=== PATIENT | male | born 1985 | race Caucasian/White ===

== ENCOUNTER 2017-04-27 09:00 | Inpatient (IN) | payer OTHER, MEDICAID ==
[~2017-04-27] VITALS: Ht 180.3 cm; Wt 105.0 kg
[2017-04-27] MEDS ORDERED: IOHEXOL 350 MG/ML 10 ML VIAL (for RAD DIAG) IVCONTRAST ONE (09:01)
[2017-04-27 09:11] VITALS: BP 141/87; PULSE 94; RESP 20; TEMP 98.2; O2SAT 97
[2017-04-27] MEDS ORDERED: SODIUM CHLORIDE 0.9% FLUSH 10 ML FLUSH IVF PRN (09:15)
[2017-04-27 09:23] VITALS: O2SAT 97
[2017-04-27 09:42] LABS: AUTOMATED NEUTROPHIL # 4.7 TH/MM3 (1.8-7.7); BASOPHIL % 0.4 % (0.0-2.0); EOSINOPHIL % 0.1 % (0.0-4.0); HEMATOCRIT 46.7 % (39.0-51.0); HEMO FLAGS DIFF FINAL; LYMPH % 21.6 % (9.0-44.0); LYMPHOCYTE # 1.5 TH/MM3 (1.0-4.8); MEAN CELL VOLUME 96.8 FL (80.0-100.0); MEAN CORPUSCULAR HEMOGLOBIN 33.9 PG (27.0-34.0); MONO % 8.9 % (0.0-8.0); PLATELET COUNT 199 TH/MM3 (150-450); RED BLOOD COUNT 4.82 MIL/MM3 (4.50-5.90); RED CELL DISTRIBUTION WIDTH 13.6 % (11.6-17.2); WHITE BLOOD COUNT 6.8 TH/MM3 (4.0-11.0)
[2017-04-27 09:54] LABS: APTT (PATIENT) 23.9 SEC (24.3-30.1); PROTHROMBIN TIME - PATIENT 10.9 SEC (9.8-11.6)
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
[2017-04-27 10:05] LABS: BICARBONATE 27.7 MEQ/L (21.0-32.0); POTASSIUM 3.2 MEQ/L (3.5-5.1)
[2017-04-27] MEDS ORDERED: ONDANSETRON HCL 4 MG/2 ML VIAL IV PUSH ONE (10:15)
[2017-04-27] MEDS ORDERED: MORPHINE SULFATE 4 MG/ML INJ IV PUSH ONE (10:15)
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
--- NOTE | 2017-04-27 13:02 | EKG ---
Date Performed: 04/27/2017 Time Performed: 09:20:13 PTAGE: 32 years EKG: Sinus rhythm NORMAL ECG NO PREVIOUS TRACING DOCTOR: Jamie Figueroa Interpretating Date/Time 04/27/2017 13:01:06
[2017-04-27 13:14] LABS: CREATINE KINASE 305 U/L (39-308)
[2017-04-27 13:27] LABS: CKMB 2.8 NG/ML (0.5-3.6)
[2017-04-27] MEDS ORDERED: ACETAMINOPHEN 325 MG TAB PO PRN (14:00)
[2017-04-27] MEDS ORDERED: SODIUM CHLORIDE 0.9% FLUSH 10 ML FLUSH IV FLUSH PRN (14:00)
[2017-04-27] MEDS ORDERED: ONDANSETRON HCL 4 MG/2 ML VIAL IV PUSH PRN (14:00)
[2017-04-27] MEDS ORDERED: MAGNESIUM HYDROXIDE SUSP 30 ML CUP PO PRN (14:00)
[2017-04-27] MEDS ORDERED: ENALAPRILAT 1.25 MG/ML VIAL IV PUSH PRN (14:00)
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
[2017-04-27] MEDS: ACETAMINOPHEN/HYDROcodone 325 MG/5 MG TAB PO PRN ×2 (17:05→20:57)
[2017-04-27] MEDS: PANTOPRAZOLE SODIUM 40 MG VIAL IVP SCH (17:05)
[2017-04-27] MEDS: MULTIVITAMIN INJ 10 ML, THIAMINE INJ 100 MG, FOLIC ACID INJ 1 MG in SODIUM CHLORID 0.9%... IV SCH (17:06)
[2017-04-27 20:00] VITALS: BP 151/83; PULSE 79; RESP 20; TEMP 98.9; O2SAT 97
[2017-04-27] MEDS: DOCUSATE SODIUM 100 MG CAP PO SCH (20:05)
[2017-04-28] VITALS: BP 122/78; PULSE 60; RESP 17; TEMP 96.7; O2SAT 97
[2017-04-28] MEDS: ACETAMINOPHEN/HYDROcodone 325 MG/5 MG TAB PO PRN ×4 (03:48→22:34)
[2017-04-28 06:54] LABS: AUTOMATED NEUTROPHIL # 2.8 TH/MM3 (1.8-7.7); BASOPHIL % 0.5 % (0.0-2.0); EOSINOPHIL # 0.1 TH/MM3 (0-0.4); EOSINOPHIL % 1.4 % (0.0-4.0); HEMATOCRIT 43.9 % (39.0-51.0); HEMO FLAGS DIFF FINAL; LYMPH % 32.8 % (9.0-44.0); LYMPHOCYTE # 1.8 TH/MM3 (1.0-4.8); MEAN CELL VOLUME 97.4 FL (80.0-100.0); MEAN CORPUSCULAR HEMOGLOBIN 33.9 PG (27.0-34.0); MEAN CORPUSCULAR HGB CONC 34.8 % (32.0-36.0); MONO % 13.1 % (0.0-8.0); NEUT % 52.2 % (16.0-70.0); PLATELET COUNT 145 TH/MM3 (150-450); RED BLOOD COUNT 4.51 MIL/MM3 (4.50-5.90); RED CELL DISTRIBUTION WIDTH 13.5 % (11.6-17.2); WHITE BLOOD COUNT 5.4 TH/MM3 (4.0-11.0)
[2017-04-28 07:15] LABS: ANION GAP 7 MEQ/L (5-15); AST (GOT) 60 U/L (15-37); BLOOD UREA NITROGEN 6 MG/DL (7-18); CHLORIDE 104 MEQ/L (98-107); GLOMERULAR FILTRATION RATE 97 ML/MIN (>89); POTASSIUM 3.4 MEQ/L (3.5-5.1); SODIUM (NA) 139 MEQ/L (136-145)
[2017-04-28 07:16] LABS: ALT (GPT) 47 U/L (12-78)
[2017-04-28 07:18] LABS: ALKALINE PHOSPHATASE 100 U/L (45-117); TOTAL BILIRUBIN ADULT 2.1 MG/DL (0.2-1.0)
[2017-04-28 08:00] VITALS: BP 127/79; PULSE 50; RESP 17; TEMP 96.6; O2SAT 95
[2017-04-28] MEDS ORDERED: POTASSIUM CHLORIDE 20 MEQ CONTROLLED RELEASE TAB PO ONE (08:15)
[2017-04-28] MEDS: DOCUSATE SODIUM 100 MG CAP PO SCH ×2 (09:19→20:58)
[2017-04-28 12:00] VITALS: BP 116/59; PULSE 60; RESP 16; TEMP 97.1; O2SAT 96
--- NOTE | 2017-04-28 12:13 | HHI.PR ---
Subjective Subjective Notes PTD: 1 Patient lying in bed. No distress noted. Sitter at bedside. Patient states, "if I move any - my tailbone. I can't really move much - it hurts." Objective Vitals/I&O Vital Signs Date Time Temp Pulse Resp B/P (MAP) Pulse Ox O2 Delivery O2 Flow Rate FiO2 04/28/17 08:00 96.6 50 17 127/79 (95) 95 04/28/17 05:50 Room Air Labs Laboratory Tests Test 04/28/17 06:10 White Blood Count 5.4 Red Blood Count 4.51 Hemoglobin 15.3 Hematocrit 43.9 Mean Corpuscular Volume 97.4 Mean Corpuscular Hemoglobin 33.9 Mean Corpuscular Hemoglobin Concent 34.8 Red Cell Distribution Width 13.5 Platelet Count 145 Mean Platelet Volume 7.9 Neutrophils (%) (Auto) 52.2 Lymphocytes (%) (Auto) 32.8 Monocytes (%) (Auto) 13.1 Eosinophils (%) (Auto) 1.4 Basophils (%) (Auto) 0.5 Neutrophils # (Auto) 2.8 Lymphocytes # (Auto) 1.8 Monocytes # (Auto) 0.7 Eosinophils # (Auto) 0.1 Basophils # (Auto) 0.0 CBC Comment DIFF FINAL Differential Comment Blood Urea Nitrogen 6 Creatinine 0.92 Random Glucose 81 Total Protein 6.5 Albumin 3.3 Calcium Level 8.7 Alkaline Phosphatase 100 Aspartate Amino Transf (AST/SGOT) 60 Alanine Aminotransferase (ALT/SGPT) 47 Total Bilirubin 2.1 Sodium Level 139 Potassium Level 3.4 Chloride Level 104 Carbon Dioxide Level 28.0 Anion Gap 7 Estimat Glomerular Filtration Rate 97 Radiology Last Impressions Pelvis X-Ray 04/27/17910 Signed Impressions: Service Date/Time: Thursday, April 27, 2017 09:50 - CONCLUSION: Normal examination for a patient of this age. Hilton Del Cid MD FACR Lumbar Spine CT 04/27/17910 Signed Impressions: Service Date/Time: Thursday, April 27, 2017 10:39 - CONCLUSION: Negative for fracture. Hilton Del Cid MD FACR Head CT 04/27/17910 Signed Impressions: Service Date/Time: Thursday, April 27, 2017 10:35 - CONCLUSION: Negative for acute process. Hilton Del Cid MD FACR Chest X-Ray 04/27/17910 Signed Impressions: Service Date/Time: Thursday, April 27, 2017 09:56 - CONCLUSION: Prominent cardiac silhouette. Mild interstitial prominence. Aspiration would be a consideration. Hilton Del Cid MD FACR Cervical Spine CT 04/27/17910 Signed Impressions: Service Date/Time: Thursday, April 27, 2017 10:35 - CONCLUSION: Negative for fracture. Hilton Del Cid MD FACR Abdomen/Pelvis CT 04/27/17910 Signed Impressions: Service Date/Time: Thursday, April 27, 2017 10:39 - CONCLUSION: Minimal contusion root of the mesentery. Large distended bladder. Hilton Del Cid MD FACR Sacrum and Coccyx X-Ray 04/27/17 0000 Signed Impressions: Service Date/Time: Thursday, April 27, 2017 09:53 - CONCLUSION: Normal examination for a patient of this age. Hilton Del Cid MD FACR Chest CT 04/27/17 0000 Signed Impressions: Service Date/Time: Thursday, April 27, 2017 10:39 - CONCLUSION: Negative for acute traumatic injury. Hilton Del Cid MD FACR Narrative Exam GENERAL: This is a 32-year-old male. Well built. No distress noted. SKIN: Warm and dry. HEAD: Atraumatic. Normocephalic. EYES: PERRLA ENT: No nasal bleeding or discharge. Mucous membranes pink and moist. NECK: Trachea midline. No JVD. CARDIOVASCULAR: Regular rate and rhythm. RESPIRATORY: No accessory muscle use. Lungs are clear to auscultation. Breath sounds equal bilaterally. No distress or dyspnea. GASTROINTESTINAL: BS + x 4 quads. Abdomen soft, non-tender, nondistended. MUSCULOSKELETAL: Extremities without cyanosis, or edema. + peripheral pulses x 4 extremities. Warm with good capillary refill and sensation. MAEW. NEUROLOGICAL: Awake and alert. Normal speech and pattern. A/P Problem List: (1) Alcohol intoxication ICD Codes: F10.929 - Alcohol use, unspecified with intoxication, unspecified Status: Acute (2) Suicide attempt ICD Codes: T14.91 - Suicide attempt Status: Acute (3) Contusion of mesentery ICD Codes: S36.892A - Contusion of other intra-abdominal organs, initial encounter Status: Acute Assessment and Plan [place]: This is a 32-year-old male who attempted suicide yesterday by jumping off a bridge. + Cocaine. EtOH = 233. INJURIES: Large distended bladder Contusion at root of mesentery Procedures: Consults: Psych. Case management. Consult to psychiatry for further management and care - awaiting their evaluation. Okay for transfer to inpatient psych if psychiatrist recommends. Sitter at bedside - to keep patient safe post suicide attempt. Patricia Act . Diet: Advanced to Regular diet. Tolerating po diet. Encourage good po intake with each meal. Pulmonary: Encourage good pulmonary toileting. IS at bedside and pt encouraged to use. Rationale for use explained to patient, and verbalized understanding. K=3.4. Potassium 20 mEq x 1 dose today. PAIN Management: Ragley 5 mg every 4 hours. Tylenol. Added Robaxin 500 mg every 8 hours. Activity: OOB. PT ordered. GI prophylaxis: Protonix IV Bowel regimen: Colace and MOM. LBM: 0 DVT prophylaxis: Mechanical VTE with SCDs. Chemical management TBD DC Planning: Case management consulted for assistance with final discharge disposition. Emotional support provided to patient and family at bedside and plan of care discussed. Discussed with RN at bedside. Patient is hemodynamically stable and being managed on the med/surg floor. The trauma team will round each day, and evaluate plan of care on a daily basis. Large distended bladder Contusion at root of mesentery Supportive care Monitor closely Abdomen benign Advanced to regular diet Pain management Encourage out of bed PT ordered Suicide attempt Patricia act . Keep patient safe - make room safe Sitter at bedside Consult to psychiatry for full evaluation Plan for inpatient psychiatric treatment Problem Qualifiers (1) Alcohol intoxication: Qualified Codes: F10.920 - Alcohol use, unspecified with intoxication, uncomplicated (2) Contusion of mesentery: Qualified Codes: S36.892A - Contusion of other intra-abdominal organs, initial encounter Monica George Apr 28, 2017 12:13
[2017-04-28] MEDS: METHOCARBAMOL 500 MG TAB PO SCH ×2 (13:35→20:58)
[2017-04-28 16:00] VITALS: BP 136/75; PULSE 53; RESP 16; TEMP 97.6; O2SAT 98
[2017-04-28] MEDS: MULTIVITAMIN INJ 10 ML, THIAMINE INJ 100 MG, FOLIC ACID INJ 1 MG in SODIUM CHLORID 0.9%... IV SCH (16:44)
[2017-04-28] MEDS: PANTOPRAZOLE SODIUM 40 MG VIAL IVP SCH (16:44)
--- NOTE | 2017-04-28 17:04 | PD.PSY.CON ---
Provisional Diagnosis Admission Date Apr 27, 2017 at 13:44 Bishop I. Major depressive disorder, single episode, severe without psychotic features; alcohol use disorder Bishop II. deferred Bishop III. recent contusion of messentary secondary to recent suicide attempt via jumping from bridge Bishop IV. multiple psychosocial losses, recent suicide attempt, financial difficulty Bishop V. 37 History of Present Illness Service Psychiatry Consult Requested By Irene Poole MD Reason for Consult moore act suicide attempt Primary Care Physician No Primary Care Physician HPI Patient is a 32 y/o , domiciled alone with three children whom he has partial custody of, employed, with past psychiatric history of depression, no prior psychiatric hospitalizations, one previous suicide attempt via overdose, no previous self-injurious behavior, substance use history of alcohol and cocaine use with remote history of polysubstance use, who was admitted to the medical floor after suicide attempt via jumping from [place] which psychiatry was consulted for evaluation. Patient was seen lying on hospital bed, calm and cooperative with interview. Patient states feeling "horribe, embarassed" due to recent suicide attempt. He states that for the past couple of weeks he was "losing everything...house, my car, my ex-...". He states that he relapsed from alcohol sobriety on February 01 when he from his but continued to live together whcih he was arrested for domestic battary and currently has upcoming trial for the same. He states that his ex- started seeing other guys, he had spent two weeks in [place] from the arrest and lost his employ in the process which he ended up being homeless for two weeks. He also mentions that he has been having financial difficutly as he was able to acquire a home and a car by working three jobs which the week prior to the SA had slept 2 hours per day. He reports having had suicidal ideations for the past coupe of weeks, which was worsening. He states that day of the SA he woke up to go to work but decided not to go as he had been thinking about jumping from a bridge for the past two weeks and began imagining himself jumping "i started even fantasizing about jumping" and had driven himself to the bridge and drank a beer in his car which he then walked to the bridge to jump. He states that while standing there police arrived and attempted to talk to him which he was able to speak to a friend who is an officer but then decided to hang up and jumped. He states that he was attempting to hit the dock but missed by 10 inches. Currently he states feeling "scared and embarased", states that he loves his children, feeling that he's good at his job, misses his . Past psychiatric history: previous psychiatric diagnosis of depressed, no previous psychiatric admissions, one previous suicide attempt via overdose, denies history of self injurious behavior. Previous mental health service by a psychiatrist 5-6 years ago which he received medication management and therapy for 6 months. Previous medication trials: Wellburtrin (last took 3-4 years ago). Substance use history: Tobacco (+) - 1 PPD, ETOH daily, 1-5 beers with liquor, last drink was yesterday morning (one beer); reports history of polysubstance use years ago; denies previous rehabilitation program for substance use or detox. 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 Legal history: recent charge of domestic battary Review of Systems Except as stated in HPI: all other systems reviewed are Neg Past Family Social History Coded Allergies: No Known Allergies (Unverified , 04/27/17) Active Scripts Hydrocodone-Acetaminophen (Hydrocodone-Acetaminophen) 5-325 mg Tab, 1 TAB PO Q6HR for Pain Management, #21 TAB Prov:Monica George FLIGHT MANAGER 04/29/17 Magnesium Hydroxide (Eq Milk of Magnesia) 400 Mg/5 Ml Melly, 30 ML PO Q6H Y for CONSTIPATION for 7 Days, MG Prov:Monica George FLIGHT MANAGER 04/29/17 Docusate Sodium (Dok) 100 Mg Cap, 100 MG PO BID for Constipation for 7 Days, # 14 CAP Prov:Monica George FLIGHT MANAGER 04/29/17 Current Medications Medications (Trade) Dose Ordered Sig/Jose Route Start Time Stop Time Status Last Admin (NS Flush) 2 ml UNSCH PRN IV FLUSH 04/27/17 14:00 (Cruger 5-325 Mg) 1 tab Q4H PRN PO 04/27/17 14:00 04/28/17 16:43 (Tylenol) 650 mg Q6H PRN PO 04/27/17 14:00 (Vasotec Inj) 1.25 mg Q8H PRN IV PUSH 04/27/17 14:00 (Zofran Inj) 4 mg Q6H PRN IV PUSH 04/27/17 14:00 (Protonix Inj) 40 mg Q24H IVP 04/27/17 16:00 04/28/17 16:44 Multivitamins 10 ml/Thiamine HCl 100 mg/Folic Acid 1 mg/Sodium Chloride 511.2 ml @ 125 mls/hr Q24H IV 04/27/17 16:00 04/29/17 20:06 04/28/17 16:44 (Colace) 100 mg BID PO 04/27/17 21:00 04/28/17 09:19 (Milk Of Magnesia Liq) 30 ml Q6H PRN PO 04/27/17 14:00 (Robaxin) 500 mg Q8HR PO 04/28/17 14:00 04/28/17 13:35 Social History , living alone but has partial custody of three children, 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 Patient's Strengths (min. 2) verbal and communicative Physical Exam patient noted to be in pain upon moving in the bed but not in acute distress when lying his side, no gross motor abnormalities, no tremor no psychomotor agitation or retardation. Vital Signs Vital Signs Date Time Temp Pulse Resp B/P (MAP) Pulse Ox O2 Delivery O2 Flow Rate FiO2 04/28/17 12:00 97.1 60 16 116/59 (78) 96 04/28/17 05:50 Room Air I/O 04/28/17 04/28/17 04/29/17 08:00 16:00 00:00 Intake Total 240 ml Balance 240 ml Lab Results labs reviewed. Test 04/28/17 06:10 White Blood Count 5.4 TH/MM3 Red Blood Count 4.51 MIL/MM3 Hemoglobin 15.3 GM/DL Hematocrit 43.9 % Mean Corpuscular Volume 97.4 FL Mean Corpuscular Hemoglobin 33.9 PG Mean Corpuscular Hemoglobin Concent 34.8 % Red Cell Distribution Width 13.5 % Platelet Count 145 TH/MM3 Mean Platelet Volume 7.9 FL Neutrophils (%) (Auto) 52.2 % Lymphocytes (%) (Auto) 32.8 % Monocytes (%) (Auto) 13.1 % Eosinophils (%) (Auto) 1.4 % Basophils (%) (Auto) 0.5 % Neutrophils # (Auto) 2.8 TH/MM3 Lymphocytes # (Auto) 1.8 TH/MM3 Monocytes # (Auto) 0.7 TH/MM3 Eosinophils # (Auto) 0.1 TH/MM3 Basophils # (Auto) 0.0 TH/MM3 CBC Comment DIFF FINAL Differential Comment Blood Urea Nitrogen 6 MG/DL Creatinine 0.92 MG/DL Random Glucose 81 MG/DL Total Protein 6.5 GM/DL Albumin 3.3 GM/DL Calcium Level 8.7 MG/DL Alkaline Phosphatase 100 U/L Aspartate Amino Transf (AST/SGOT) 60 U/L Alanine Aminotransferase (ALT/SGPT) 47 U/L Total Bilirubin 2.1 MG/DL Sodium Level 139 MEQ/L Potassium Level 3.4 MEQ/L Chloride Level 104 MEQ/L Carbon Dioxide Level 28.0 MEQ/L Anion Gap 7 MEQ/L Estimat Glomerular Filtration Rate 97 ML/MIN Mental Status Examination Appearance appears stated age, in hospital [facility], fair hygiene and grooming, calm and cooperative with interview; fair eye contact Speech: Unremarkable Orientation: x3 Memory: Unremarkable Thought Process: Logical, Organized Thought Content: Unremarkable Language fluent and spontaneous Fund of Knowledge average Hallucination Type: None Attention and Concentration: Good Suicidal Ideation: Yes (recent suicide attempt) Previous Suicide Attempts: Yes Homicidal Ideation: No Previous Homicide Attempts: No Insight: Poor Judgment: Poor Affect: Other (restricted) Mood: Other ("scared and embarrassed") Assessment & Plan Problem List: (1) Major depressive disorder, single episode, severe without psychotic features ICD Codes: F32.2 - Major depressive disorder, single episode, severe without psychotic features (2) Alcohol use disorder ICD Codes: F10.99 - Alcohol use, unspecified with unspecified alcohol-induced disorder Assessment & Plan Patient is a 32 y/o man, , has partial custody of three small children, employed, , living alone with past psychiatric history of depressive disorder, alcohol use disorder, no previous psychiatric admissions , one remote previous suicide attempt (14 y/o old), no previous self injurious behavior who was admitted to the medical floor after having had a suicide attempt from jumping off a bridge which psychiatry was consulted for evaluation. Patient with recent history of depressive symptoms in the context of significant psychosocial stressors (separation of , pending court trail for domestic violence charge, loss of employ, financial difficulties, possible loss of house and car) and recent relapse from alcohol use which he survived suicide attempt via jumping from a bridge and will require inpatient psychiatric admission for stabilization and safety. May start Wellbutrin 100mg PO BID for depression. May transfer to the inpatient psychiatry unit once medically clear and if bed is available. Yves Mckeon MD Apr 28, 2017 17:04
[2017-04-28 20:22] VITALS: BP 137/82; PULSE 89; RESP 20; TEMP 98.2; O2SAT 94
[2017-04-29 00:23] VITALS: BP 122/56; PULSE 58; RESP 18; TEMP 97; O2SAT 98
[2017-04-29] MEDS: METHOCARBAMOL 500 MG TAB PO SCH ×2 (06:31→14:48)
[2017-04-29] MEDS ORDERED: MAGN400S PO (07:51)
[2017-04-29] MEDS ORDERED: HYDR-3516 PO ×2 (07:51→12:43)
[2017-04-29] MEDS ORDERED: DOCU1CAP39 PO (07:51)
[2017-04-29 08:00] VITALS: BP 111/65; PULSE 57; RESP 18; TEMP 97.3; O2SAT 96
[2017-04-29] MEDS: DOCUSATE SODIUM 100 MG CAP PO SCH (09:00)
[2017-04-29] MEDS: ACETAMINOPHEN/HYDROcodone 325 MG/5 MG TAB PO PRN (09:38)
--- NOTE | 2017-04-29 12:40 | HHI.PR ---
Objective Vitals/I&O Vital Signs Date Time Temp Pulse Resp B/P (MAP) Pulse Ox O2 Delivery O2 Flow Rate FiO2 04/29/17 08:00 97.3 57 18 111/65 (80) 96 04/28/17 05:50 Room Air Radiology Last Impressions Pelvis X-Ray 04/27/17910 Signed Impressions: Service Date/Time: Thursday, April 27, 2017 09:50 - CONCLUSION: Normal examination for a patient of this age. Hilton Del Cid MD FACR Lumbar Spine CT 04/27/17910 Signed Impressions: Service Date/Time: Thursday, April 27, 2017 10:39 - CONCLUSION: Negative for fracture. Hilton Del Cid MD FACR Head CT 04/27/17910 Signed Impressions: Service Date/Time: Thursday, April 27, 2017 10:35 - CONCLUSION: Negative for acute process. Hilton Del Cid MD FACR Chest X-Ray 04/27/17910 Signed Impressions: Service Date/Time: Thursday, April 27, 2017 09:56 - CONCLUSION: Prominent cardiac silhouette. Mild interstitial prominence. Aspiration would be a consideration. Hilton Del Cid MD FACR Cervical Spine CT 04/27/17910 Signed Impressions: Service Date/Time: Thursday, April 27, 2017 10:35 - CONCLUSION: Negative for fracture. Hilton Del Cid MD FACR Abdomen/Pelvis CT 04/27/17910 Signed Impressions: Service Date/Time: Thursday, April 27, 2017 10:39 - CONCLUSION: Minimal contusion root of the mesentery. Large distended bladder. Hilton Del Cid MD FACR Sacrum and Coccyx X-Ray 04/27/17 0000 Signed Impressions: Service Date/Time: Thursday, April 27, 2017 09:53 - CONCLUSION: Normal examination for a patient of this age. Hilton Del Cid MD FACR Chest CT 04/27/17 0000 Signed Impressions: Service Date/Time: Thursday, April 27, 2017 10:39 - CONCLUSION: Negative for acute traumatic injury. Hilton Del Cid MD FACR Narrative Exam GENERAL: This is a 32-year-old male. Well built. No distress noted. SKIN: Warm and dry. HEAD: Atraumatic. Normocephalic. EYES: PERRLA ENT: No nasal bleeding or discharge. Mucous membranes pink and moist. NECK: Trachea midline. No JVD. CARDIOVASCULAR: Regular rate and rhythm. RESPIRATORY: No accessory muscle use. Lungs are clear to auscultation. Breath sounds equal bilaterally. No distress or dyspnea. GASTROINTESTINAL: BS + x 4 quads. Abdomen soft, non-tender, nondistended. MUSCULOSKELETAL: Extremities without cyanosis, or edema. + peripheral pulses x 4 extremities. Warm with good capillary refill and sensation. MAEW. NEUROLOGICAL: Awake and alert. Normal speech and pattern. A/P Problem List: (1) Alcohol intoxication ICD Codes: F10.929 - Alcohol use, unspecified with intoxication, unspecified Status: Acute (2) Suicide attempt ICD Codes: T14.91 - Suicide attempt Status: Acute (3) Contusion of mesentery ICD Codes: S36.892A - Contusion of other intra-abdominal organs, initial encounter Status: Acute Assessment and Plan [place]: This is a 32-year-old male who attempted suicide yesterday by jumping off a bridge. + Cocaine. EtOH = 233. INJURIES: Large distended bladder Contusion at root of mesentery Procedures: Consults: Psych. Case management. Consult to psychiatry for further management and care - awaiting their evaluation. Okay for transfer to inpatient psych if psychiatrist recommends. Sitter at bedside - to keep patient safe post suicide attempt. Patricia Act . Diet: Advanced to Regular diet. Tolerating po diet. Encourage good po intake with each meal. Pulmonary: Encourage good pulmonary toileting. IS at bedside and pt encouraged to use. Rationale for use explained to patient, and verbalized understanding. K=3.4. Potassium 20 mEq x 1 dose today. PAIN Management: [place] 5 mg every 4 hours. Tylenol. Added Robaxin 500 mg every 8 hours. Activity: OOB. PT ordered. GI prophylaxis: Protonix IV Bowel regimen: Colace and MOM. LBM: 0 DVT prophylaxis: Mechanical VTE with SCDs. Chemical management TBD DC Planning: Case management consulted for assistance with final discharge disposition. Emotional support provided to patient and family at bedside and plan of care discussed. Discussed with RN at bedside. Patient is hemodynamically stable and being managed on the med/surg floor. The trauma team will round each day, and evaluate plan of care on a daily basis. Large distended bladder Contusion at root of mesentery Supportive care Monitor closely Abdomen benign Advanced to regular diet Pain management Encourage out of bed PT ordered Suicide attempt Patricia act . Keep patient safe - make room safe Sitter at bedside Consult to psychiatry for full evaluation Plan for inpatient psychiatric treatment Problem Qualifiers (1) Alcohol intoxication: Qualified Codes: F10.920 - Alcohol use, unspecified with intoxication, uncomplicated (2) Contusion of mesentery: Qualified Codes: S36.892A - Contusion of other intra-abdominal organs, initial encounter Monica George Apr 29, 2017 12:40
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
[2017-04-30] MEDS ORDERED: BUPR100CR PO (15:49)
== END 2017-04-29 15:15 | DRG 914 ==
LOC: NEPE 09:00 → NEDA 13:44 → N07B 16:11
PROVIDERS: ADMIT Surgery Trauma Surgery; ATTEND Surgery Trauma Surgery
DX: S36.892A Contusion of other intra-abdominal organs, initial encounter (principal); F32.2 Major depressive disorder, single episode, severe without psychotic features; F10.129 Alcohol abuse with intoxication, unspecified; F17.210 Nicotine dependence, cigarettes, uncomplicated; Y93.89 Activity, other specified; Y92.89 Other specified places as the place of occurrence of the external cause; Y90.7 Blood alcohol level of 200-239 mg/100 ml
CPT/HCPCS: 70450; 71010; 71260; 72125; 72131; 72170; 72220; 74177; 80048; 80053; 80307; 82550; 82552; 84484; 85025; 85610; 85730; 86850; 86900; 86901; 93005; 94150; 96374; 96375; C9113; J2270; J2405; J3411; J7040; L0150; Q9967

== ENCOUNTER 2017-04-29 15:27 | Inpatient (IN) | payer MEDICAID ==
[~2017-04-29] VITALS: Ht 180.3 cm; Wt 105.1 kg
[~2017-04-29 15:27] MED LIST: DOCU1CAP39 PO; HYDR-3516 PO; MAGN400S PO
[2017-04-29 15:32] VITALS: BP 130/85; PULSE 62; RESP 18; TEMP 97.6; O2SAT 98
[2017-04-29] MEDS ORDERED: LORazepam 2 MG/ML VIAL IM PRN ×2 (18:45)
[2017-04-29] MEDS ORDERED: MAGNESIUM HYDROXIDE SUSP 30 ML CUP PO PRN (18:45)
[2017-04-29] MEDS ORDERED: diphenhydrAMINE HCL 50 MG CAP PO PRN (18:45)
[2017-04-29] MEDS ORDERED: LORazepam 0.5 MG TAB PO PRN (18:45)
[2017-04-29] MEDS ORDERED: ALUMINUM/MAGNESIUM/SIMETH 30 ML CUP PO PRN (18:45)
[2017-04-29] MEDS ORDERED: LORazepam 1 MG TAB PO PRN (18:45)
[2017-04-29] MEDS ORDERED: ACETAMINOPHEN/HYDROcodone 325 MG/5 MG TAB PO PRN (21:00)
[2017-04-29] MEDS: METHOCARBAMOL 500 MG TAB PO SCH (21:19)
[2017-04-29] MEDS: DOCUSATE SODIUM 100 MG CAP PO SCH (21:19)
[2017-04-29] MEDS: ACETAMINOPHEN 325 MG TAB PO PRN (22:03)
[2017-04-30] MEDS: METHOCARBAMOL 500 MG TAB PO SCH ×2 (06:09→13:34)
[2017-04-30 06:48] VITALS: BP 121/69; PULSE 58; RESP 18; TEMP 98.1; O2SAT 98
[2017-04-30] MEDS: DOCUSATE SODIUM 100 MG CAP PO SCH ×2 (08:53→08:54)
[2017-04-30] MEDS ORDERED: REMOVE OLD PATCH T-DERMAL SCH (09:00)
[2017-04-30] MEDS ORDERED: NICOTINE 21 MG/24 HR PATCH T-DERMAL SCH (09:00)
[2017-04-30] MEDS: ACETAMINOPHEN 325 MG TAB PO PRN (10:24)
[2017-04-30 11:30] LABS: LDL CHOLESTEROL 78 MG/DL (0-99)
[2017-04-30] MEDS ORDERED: ALUMINUM/MAGNESIUM/SIMETH 30 ML CUP PO PRN (15:30)
[2017-04-30] MEDS ORDERED: ACETAMINOPHEN 325 MG TAB PO PRN (15:30)
--- NOTE | 2017-04-30 15:45 | HHI.HP ---
Provisional Diagnosis Admission Date Apr 29, 2017 at 15:27 Kimberly I. Adjustment disorder with depressed mood F 25.1 cocaine abuse F-14.10, alcohol abuse with intoxication f 10.129 Certification of Person's Competence To Provide Express and Informed Consent I have personally examined Jassi Huynh , a person being served at [facility] on, Apr 30, 2017 15:28. Express and informed consent means consent voluntarily given in writing, by a competent person, after sufficient explanation and disclosure of the subject matter involved to enable the person to make a knowing and willful decision without any element of force, fraud, deceit, duress, or other form of constraint or coercion. This person is 18 years of age or older, is not now known to be incompetent to consent to treatment with a guardian advocate, and does not have a health care surrogate or proxy currently making medical treatment decisions. I have found this person to be one of the following: [xx] Competent to provide express and informed consent, as defined above, for voluntary admission to this facility and is competent to provide express and informed consent for treatment. He/she has the consistent capacity to make well reasoned, willful, and knowing decisions concerning his or her medical or mental health treatment. The person fully and consistently understands the purpose of the admission for examination/placement and is fully capable of personally exercising all rights assured under [place] Incompetent to provide express and informed consent to voluntary admission, and this is incompetent to provide express and informed consent to treatment. The person must be transferred to involuntary status and a petition for a guardian advocate filed with the Circuit Court. [] Refusing to provide express and informed consent to voluntary admission but is competent to provide express and informed consent for treatment. The person must be discharged or transferred to involuntary status. Form shall be completed within 24 hours of a person's arrival at the receiving facility and filed in the clinical record of each person: 1. Admitted on a voluntary basis 2. Permitted to provide express and informed consent to his/her own treatment 3. Allowed to transfer from involuntary to voluntary status 4. Prior to permitting a person to consent to his or her own treatment after having been previously found incompetent to consent to treatment. History of Present Illness Capacity: Has Capacity HPI Patient is a 32-year-old white male initially admitted to the hospital after jumping off of a bridge over the [place] [employer] [address]. An apparent suicide attempt. Patient seen screened in the ED urine toxicology positive for cocaine blood alcohol level of 233. Patient was admitted to the medical unit for observation on 04/27/17 under visit [id number], patient seen by Dr. Mckeon consultation on . Patient medically cleared discharged medical unit on 04/29/17 admitted to the psychiatric unit. Patient seen by me today. He is alert oriented muscular Lao Tunisian. from his of 11 years. He had 3 boys ranging in age from 3-9. Patient states he has 3 jobs supporting his family. He acknowledges a history of alcohol abuse going back a number of years. With intermittent episodes of sobriety. He states the stress in his marriage is compounded by his alcohol misuse. He did have a relapse recently perhaps related to the frustration with working all the jobs even though there appears to be some attempts at reconciliation with his . And while the jobs she also did some cocaine on the day of this misadventure. Patient now denies any suicidality homicidality voices or visions. He has been active at [facility] substance abuse programs. He does go to AA meetings and has a sponsor. He has talked to a sponsor is now scheduled to go to meetings at least daily if not more frequently. He realizes his need for absolute sobriety. He is able contracted to no harm. Patient states he did have a history of depression at 14 years of age though there is been no subsequent psychiatric contact. However he says in the past he has been on Wellbutrin by PCP and that did help with him to maintain stable mood also. He denies any history of physical or sexual abuse. Denies any family history of mental illness or abuse. At the present time I feel patient does not meet criteria be retained under the [place] act. I feel does have insight into his issues and is able to contract was to do no harm. Thus I'll lift the [place] act allow the patient to be discharged from self. He does have an appointment already with his counselor through [facility]. We will start him on Wellbutrin SR 100 mg daily follow-up also [facility] mental health services. Absolute sobriety, AA Review of Systems Except as stated in HPI: all other systems reviewed are Neg Past Psych History Psychological trauma history Patient denies any prior physical or sexual abuse Violence risk - others (6 mos) Low Violence risk - self (6 mos) Patient [place] [facility] Substance Abuse History Drugs/Alcohol past 12 months Active alcohol user intermittent cocaine use her Past Family Social History Coded Allergies: No Known Allergies (Unverified , 04/27/17) Past Medical History Patient medically cleared visit [id number] Active Scripts Magnesium Hydroxide (Eq Milk of Magnesia) 400 Mg/5 Ml Melly, 30 ML PO Q6H Y for CONSTIPATION for 7 Days, MG Prov:Monica George BIOLOGY RESEARCH ASSISTANT 04/29/17 Docusate Sodium (Dok) 100 Mg Cap, 100 MG PO BID for Constipation for 7 Days, # 14 CAP Prov:Monica George BIOLOGY RESEARCH ASSISTANT 04/29/17 Discontinued Scripts Hydrocodone-Acetaminophen (Hydrocodone-Acetaminophen) 5-325 mg Tab, 1 TAB PO Q6HR for Pain Management, #21 TAB Prov:Monica George BIOLOGY RESEARCH ASSISTANT 04/29/17 Current Medications Medications (Trade) Dose Ordered Sig/Jose Route Start Time Stop Time Status Last Admin (Ativan) 1 mg Q6H PRN PO 04/29/17 18:45 (Ativan Inj) 1 mg Q6H PRN IM 04/29/17 18:45 (Ativan) 0.5 mg Q12H PRN PO 04/29/17 18:45 (Ativan Inj) 0.5 mg Q12H PRN IM 04/29/17 18:45 (Benadryl) 50 mg HS PRN PO 04/29/17 18:45 04/29/17 22:04 (Tylenol) 650 mg Q4H PRN PO 04/29/17 18:45 04/30/17 10:24 (Milk Of Magnesia Liq) 30 ml DAILY PRN PO 04/29/17 18:45 (Mag-Al Plus Susp Liq) 30 ml Q6H PRN PO 04/29/17 18:45 (Habitrol 21 Mg Patch.24 Hr) 1 patch DAILY T-DERMAL 04/30/17 09:00 04/30/17 08:53 Miscellaneous Information 1 DAILY T-DERMAL 04/30/17 09:00 (Robaxin) 500 mg Q8HR PO 04/29/17 22:00 04/30/17 13:34 (Colace) 100 mg BID PO 04/29/17 21:00 04/29/17 21:19 (Crucible 5-325 Mg) 1 tab Q4H PRN PO 04/29/17 21:00 Family History No history mental illness and family Social History Patient is from his 3 small children Patient's Strengths (min. 2) Patient verbal and flexes healthcare cooperative Physical Exam Patient medically cleared with visit [id number] patient sitting quietly in the room with nurse Maude myself is in no acute distress though is in some obvious pain with movement due to the bruising from his jump off the bridge, he is in no respiratory distress, moving all 4 extremities without difficulty though some pain in his right shoulder Vital Signs Vital Signs Date Time Temp Pulse Resp B/P (MAP) Pulse Ox O2 Delivery O2 Flow Rate FiO2 04/30/17 06:48 98.1 58 18 121/69 (86) 98 Lab Results Test 04/30/17 10:24 Triglycerides Level 85 MG/DL Cholesterol Level 160 MG/DL LDL Cholesterol 78 MG/DL HDL Cholesterol 65.0 MG/DL Cholesterol/HDL Ratio 2.46 RATIO Thyroid Stimulating Hormone 3rd Gen 1.720 uIU/ML Mental Status Examination Alert oriented muscular white male calm cooperative with fair eye contact Appearance Clean neatly Speech: Unremarkable Orientation: x3 Memory: Unremarkable Thought Process: Logical, Organized Thought Content: Unremarkable Language Fair Fund of Knowledge Fair Hallucination Type: None Attention and Concentration: Good Suicidal Ideation: Yes (now denies suicidality able contracted to no harm) Previous Suicide Attempts: Yes Homicidal Ideation: No Previous Homicide Attempts: No Insight: Poor Judgment: Poor Affect: Other (slight decreased range and intensity) Mood: Euthymic (to mildly dysphoric) Motor Activity: Normal gait Assessment & Plan Problem List: (1) Cocaine abuse ICD Codes: F14.10 - Cocaine abuse, uncomplicated (2) Alcohol abuse with intoxication ICD Codes: F10.129 - Alcohol abuse with intoxication, unspecified (3) Adjustment disorder with depressed mood ICD Codes: F43.21 - Adjustment disorder with depressed mood Assessment & Plan Estimated LOS: days at this time patient does not meet criteria for inpatient psychiatric hospitalization of the Patricia act. I will lift Patricia act. Allow patient discharged from self. He denies suicidality homicidality voices or visions. She is able contracted to do no harm. These may plans with his AA sponsor for meetings daily or more frequently. We'll start him on Wellbutrin SR 100 mg daily. And refer also [place] act for psychiatric services. Absolute sobriety Discharge Planning See above Request HC Surrog/Guard Advoc?: No Jett Lau MD Apr 30, 2017 15:45
[2017-04-30] MEDS ORDERED: BUPR100CR PO (15:49)
[2017-04-30 15:51] LABS: HEMOGLOBIN A1a 0.9 %; HEMOGLOBIN A1b 0.6 %; HEMOGLOBIN Ao 87.5 %; HEMOGLOBIN F 0.8 %
--- NOTE | 2017-04-30 15:53 | HHI.DS ---
Psychiatry Discharge Summary Inpatient Psychiatric care?: Yes Advance Directive: No Mental Health AdvanceDirective: No Health Care Proxy: No Admission Admission Date Apr 29, 2017 at 15:27 Admission Diagnosis: (1) Alcohol abuse with intoxication ICD Code: F10.129 - Alcohol abuse with intoxication, unspecified (2) Cocaine abuse ICD Code: F14.10 - Cocaine abuse, uncomplicated (3) Adjustment disorder with depressed mood ICD Code: F43.21 - Adjustment disorder with depressed mood Brief History Patient is a 32-year-old white male initially admitted to the hospital after jumping off of a bridge over the [employer]. An apparent suicide attempt. Patient seen screened in the ED urine toxicology positive for cocaine blood alcohol level of 233. Patient was admitted to the medical unit for observation on 04/27/17 under visit [id number], patient seen by Dr. Mckeon consultation on . Patient medically cleared discharged medical unit on 04/29/17 admitted to the psychiatric unit. Patient seen by me today. He is alert oriented muscular Taiwanese Qatari. from his of 9 years. He had 3 boys ranging in age from 3-9. Patient states he has 3 jobs supporting his family. He acknowledges a history of alcohol abuse going back a number of years. With intermittent episodes of sobriety. He states the stress in his marriage is compounded by his alcohol misuse. He did have a relapse recently perhaps related to the frustration with working all the jobs even though there appears to be some attempts at reconciliation with his . And while the jobs she also did some cocaine on the day of this misadventure. Patient now denies any suicidality homicidality voices or visions. He has been active at [employer] act substance abuse programs. He does go to AA meetings and has a sponsor. He has talked to a sponsor is now scheduled to go to meetings at least daily if not more frequently. He realizes his need for absolute sobriety. He is able contracted to no harm. Patient states he did have a history of depression at 14 years of age though there is been no subsequent psychiatric contact. However he says in the past he has been on Wellbutrin by PCP and that did help with him to maintain stable mood also. He denies any history of physical or sexual abuse. Denies any family history of mental illness or abuse. At the present time I feel patient does not meet criteria be retained under the Patricia act. I feel does have insight into his issues and is able to contract was to do no harm. Thus I'll lift the Patricia act allow the patient to be discharged from self. He does have an appointment already with his counselor through [facility]. We will start him on Wellbutrin SR 100 mg daily follow-up also [facility] mental health services. Absolute sobriety, AA Tobacco Use In Past 30 Days: Cigarettes But Not Daily Alcohol Use: Monthly or Less Hospital Course Please see dictation above under brief history. Patient does not meet Patricia criteria at this time. Lift [employer] act allow patient to be discharged from self. He denies suicidality homicidality voices or visions. Is able contracted to no harm. Will follow-up outpatient [facility] medication management we'll start him on Wellbutrin XL 100 mg daily #30, also follow-up [facility] substance abuse counseling Results Blood Pressure 121 / 69 Vital Signs Date Time Temp Pulse Resp B/P (MAP) Pulse Ox O2 Delivery O2 Flow Rate FiO2 04/30/17 06:48 98.1 58 18 121/69 (86) 98 Laboratory Tests Test 04/30/17 10:24 HDL Cholesterol 65.0 MG/DL (40.0-60.0) Laboratory Results Test 04/30/17 10:24 Cholesterol Level 160 MG/DL (120-200) HDL Cholesterol 65.0 MG/DL (40.0-60.0) LDL Cholesterol 78 MG/DL (0-99) Triglycerides Level 85 MG/DL (42-150) Summary of Procedures None done Pending results at discharge: No Medications # of Antipsychotic meds at D/C: 0 Approp Antipsych med options 1 - Minimum of three failed multiple trials of monotherapy. 2 - Documented plan to taper to monotherapy due to previous use of multiple meds OR cross-taper in progress at D/C. 3 - Documentation of augmentation of Clozapine. 4 - Justification other than those listed in allowable values 1-3, document here : Discharge Discharge Date: Apr 30, 2017 Discharge Diagnosis: (1) Alcohol abuse with intoxication Diagnosis: Secondary ICD Code: F10.129 - Alcohol abuse with intoxication, unspecified (2) Cocaine abuse Diagnosis: Secondary ICD Code: F14.10 - Cocaine abuse, uncomplicated (3) Adjustment disorder with depressed mood Diagnosis: Principal ICD Code: F43.21 - Adjustment disorder with depressed mood Mental Status Exam at Disch Alert oriented muscular white male calm cooperative, he is normoactive, speech rate and rhythm within normal limits though no formal thought disorders. Patient mood is euthymic to mildly dysphoric with good range and intensity of his affect. Then auditory or visual hallucinations. No delusions. Insight and judgment is poor to fair. Cognition grossly intact Pt Condition on Discharge: Stable Discharge Disposition: Discharge Home Discharge Instructions Diet Instructions: As Tolerated, No Restrictions Activities you can perform: Regular-No Restrictions Scheduled Appointment: [facility] (follow-up psychiatric medication management, along with substance abuse treatment by his counselor through [facility]) Appointment Date: May 01, 2017 Appointment Time: 7:45 a.m. Discharge Time > 30 minutes Discharge/Advance Care Plan Health Problems: (1) Cocaine abuse (2) Alcohol abuse with intoxication (3) Adjustment disorder with depressed mood Goals to promote your health * To prevent worsening of your condition and complications * To maintain your health at the optimal level Directions to meet your goals Take your medications as prescribed Follow your dietary instruction Follow activity as directed Keep your appointments as scheduled Take your immunizations and boosters as scheduled If your symptoms worsen call your PCP, if no PCP go to Urgent Care Center or Emergency Room For 19/02 questions related to your inpatient stay or results of tests pending at discharge, please contact Dr. Jett Lau at Smoking is Dangerous to Your Health. Avoid second hand smoking Jett Lau MD Apr 30, 2017 15:53
[2017-04-30] MEDS ORDERED: MAGNESIUM HYDROXIDE SUSP 30 ML CUP PO PRN (16:00)
== END 2017-04-30 17:25 | disposition home or self-care (01) | DRG 881 ==
LOC: H260 15:27
PROVIDERS: ADMIT Psychiatry & Neurology Psychiatry; ATTEND Psychiatry & Neurology Psychiatry
DX: F43.21 Adjustment disorder with depressed mood (principal); F14.10 Cocaine abuse, uncomplicated; F10.129 Alcohol abuse with intoxication, unspecified; S40.011A Contusion of right shoulder, initial encounter; T14.91XA Suicide attempt, initial encounter; Y90.7 Blood alcohol level of 200-239 mg/100 ml; Y92.89 Other specified places as the place of occurrence of the external cause; Y93.39 Activity, other involving climbing, rappelling and jumping off
CPT/HCPCS: 80061; 83036; 84443; Q0163

== ENCOUNTER 2017-05-12 02:52 | Emergency (ER) | payer OTHER ==
[~2017-05-12] VITALS: Ht 180.3 cm; Wt 105.0 kg
[~2017-05-12 02:52] MED LIST changes: +BUPR100CR PO; -HYDR-3516 PO
[2017-05-12 03:01] VITALS: BP 145/92; PULSE 104; RESP 18; TEMP 98.3; O2SAT 99
[2017-05-12] MEDS ORDERED: BUPR100CR PO (03:01)
--- NOTE | 2017-05-12 03:19 | PD ---
HPI Chief Complaint: Psychiatric Symptoms Time Seen by Provider: 03:09 Travel History International Travel<30 days: No Contact w/Intl Traveler<30days: No Traveled to known affect area: No History of Present Illness HPI 32-year-old male was Patricia acted for suicidal threat. Patient has history of depression. Patient has not been taking his medication including Wellbutrin and trazodone. Patient states that he drinking alcohol today. Patient denies any headache. Patient denies any chest pain or shortness of breath. Patient denies abdominal pain. Patient denies any focal weakness or numbness of the extremity. PFSH Past Medical History Tetanus Vaccination: Unknown Influenza Vaccination: No Social History Alcohol Use: No Tobacco Use: Yes (1 PPD) Substance Use: No Allergies-Medications (Allergen,Severity, Reaction): Coded Allergies: No Known Allergies (Unverified , 05/12/17) Reported Meds & Prescriptions Reported Meds & Active Scripts Active Reported Wellbutrin SR 12 HR (Bupropion HCl) 100 Mg Tab 100 Mg PO Q12HR Review of Systems General / Constitutional: No: Fever Eyes: No: Visual changes HENT: No: Headaches Cardiovascular: No: Chest Pain or Discomfort Respiratory: No: Shortness of Breath Gastrointestinal: No: Abdominal Pain Genitourinary: No: Dysuria Musculoskeletal: No: Pain Skin: No Rash Neurologic: No: Weakness Psychiatric: No: Depression Endocrine: No: Polydipsia Hematologic/Lymphatic: No: Easy Bruising Physical Exam Narrative GENERAL: Well-nourished, well-developed patient. SKIN: Focused skin assessment warm/dry. HEAD: Normocephalic. EYES: No scleral icterus. No injection or drainage. NECK: Supple, trachea midline. No JVD or lymphadenopathy. CARDIOVASCULAR: Regular rate and rhythm without murmurs, gallops, or rubs. RESPIRATORY: Breath sounds equal bilaterally. No accessory muscle use. GASTROINTESTINAL: Abdomen soft, non-tender, nondistended. MUSCULOSKELETAL: No cyanosis, or edema. BACK: Nontender without obvious deformity. No CVA tenderness. Neurologic exam normal. Data Data Last Documented VS Vital Signs Date Time Temp Pulse Resp B/P (MAP) Pulse Ox O2 Delivery O2 Flow Rate FiO2 05/12/17 03:01 98.3 104 18 145/92 (109) 99 Orders Orders Complete Blood Count With Diff (05/12/17 03:15) Comprehensive Metabolic Panel (05/12/17 03:15) Psych Screen (05/12/17 03:15) Drug Screen, Random Urine (05/12/17 03:15) Alcohol (Ethanol) (05/12/17 03:15) MDM Medical Decision Making Medical Screen Exam Complete: Yes Emergency Medical Condition: Yes Differential Diagnosis Differential diagnosis including depression, suicidal, adjustment disorder Narrative Course 32-year-old male was Patricia acted for suicidal threat. Abhay Miles MD May 12, 2017 03:19
[2017-05-12 03:34] LABS: BASOPHIL % 0.4 % (0.0-2.0); EOSINOPHIL % 0.2 % (0.0-4.0); HEMATOCRIT 49.4 % (39.0-51.0); HEMO FLAGS DIFF FINAL; LYMPH % 33.4 % (9.0-44.0); LYMPHOCYTE # 3.5 TH/MM3 (1.0-4.8); MEAN CELL VOLUME 97.7 FL (80.0-100.0); MEAN CORPUSCULAR HEMOGLOBIN 34.6 PG (27.0-34.0); MEAN CORPUSCULAR HGB CONC 35.4 % (32.0-36.0); MONO % 8.4 % (0.0-8.0); NEUT % 57.6 % (16.0-70.0); PLATELET COUNT 255 TH/MM3 (150-450); RED BLOOD COUNT 5.06 MIL/MM3 (4.50-5.90); RED CELL DISTRIBUTION WIDTH 14.1 % (11.6-17.2); WHITE BLOOD COUNT 10.4 TH/MM3 (4.0-11.0)
[2017-05-12 04:03] LABS: ANION GAP 10 MEQ/L (5-15); AST (GOT) 40 U/L (15-37); BICARBONATE 24.3 MEQ/L (21.0-32.0); BLOOD UREA NITROGEN 4 MG/DL (7-18); CHLORIDE 106 MEQ/L (98-107); GLOMERULAR FILTRATION RATE 92 ML/MIN (>89); POTASSIUM 3.2 MEQ/L (3.5-5.1); SODIUM (NA) 140 MEQ/L (136-145)
[2017-05-12 04:06] LABS: ALKALINE PHOSPHATASE 103 U/L (45-117); ALT (GPT) 44 U/L (12-78); TOTAL BILIRUBIN ADULT 0.6 MG/DL (0.2-1.0)
[2017-05-12 04:09] LABS: ALCOHOL 235 MG/DL (0-5)
--- NOTE | 2017-05-13 16:02 | PD.PSY.CON ---
Provisional Diagnosis Admission Date [place] I. Substance induced mood disorder, polysubstance dependence, including cocaine, cannabis and alcohol History of Present Illness Service Psychiatry Consult Requested By Reason for Consult Belem lopez Primary Care Physician Unknown HPI The patient is a 32-year-old, domicile with his , , unemployed, with psychiatric history of depression, anxiety, 1 previous suicidal attempt by jumping off a bridge, hospitalizing [facility] after that suicidal attempt about 2 weeks ago, he is on Trazodone 100 and Wellbutrin 150 mg twice a day, no significant medical history, was Patricia acted for suicidal threat. Patient confirmed that he was drunk, alcohol level initially was 235, also used cocaine and cannabis yesterday. Patient denies suicidal ideation, he says that he was just trying to manipulate his by telling her that there are many ways to commit suicide. He denies depressive symptoms, he denies anxiety, he denies psychosis. He denies suicidal and homicidal ideation, he denies visual and auditory hallucinations. Future oriented, he says that his mother is coming this afternoon to his bapze. He says that he would be baptize in the [employer], he reports he has been very compliant with medications and going to AA meetings. His mother was contacted by phone, she doesn't seem to have any safety concern at this moment, she was okay with discharge. Review of Systems Except as stated in HPI: all other systems reviewed are Neg Past Family Social History Coded Allergies: No Known Allergies (Unverified , 05/12/17) Reported Medications Bupropion HCl ER 12 HR (Wellbutrin SR 12 HR) 100 Mg Tab, 100 MG PO Q12HR for Control Depression, TAB 0 Refills 05/12/17 Discontinued Scripts Bupropion HCl ER 12 HR (Wellbutrin SR 12 HR) 100 Mg Tab, 100 MG PO DAILY for depression, #30 TAB 0 Refills Prov:Jett Lau MD 04/30/17 Magnesium Hydroxide (Eq Milk of Magnesia) 400 Mg/5 Ml Melly, 30 ML PO Q6H Y for CONSTIPATION for 7 Days, MG Prov:Monica George 04/29/17 Docusate Sodium (Dok) 100 Mg Cap, 100 MG PO BID for Constipation for 7 Days, # 14 CAP Prov:Monica GeorgeP 04/29/17 Social History She was born and raised in [place], he lives in [facility], he is but , unemployed, highest level of education is high school Physical Exam Vital Signs Vital Signs Date Time Temp Pulse Resp B/P (MAP) Pulse Ox O2 Delivery O2 Flow Rate FiO2 05/12/17 03:01 98.3 104 18 145/92 (109) 99 Mental Status Examination Appearance: Appropriate Consciousness: Alert Orientation: x4 Motor Activity: Normal gait Speech: Unremarkable Language: Adequate Fund of Knowledge: Adequate Attention and Concentration: Adequate Memory: Unremarkable Mood: Appropriate Affect: Appropriate Thought Process & Associations: Intact Thought Content: Appropriate Hallucination Type: None Delusion Type: None Suicidal Ideation: No Suicidal Plan: No Suicidal Intention: No Homicidal Ideation: No Homicidal Plan: No Homicidal Intention: No Insight: Adequate Judgment: Adequate Assessment & Plan Problem List: (1) Alcohol use disorder ICD Codes: F10.99 - Alcohol use, unspecified with unspecified alcohol-induced disorder Assessment & Plan: At the moment of this evaluation the patient does not present any evidence and rheumatology of depression, anxiety, mina or psychosis. The patient denies suicidal and homicidal ideation, he denies visual and auditory hallucinations. Recent suicidal statement to his seems to be manipulative in nature, also most probably influenced by alcohol, cocaine and cannabis intoxication. Patient does not meet criteria for psychiatric admission at this moment. Patricia act will be lifted. Assessment & Plan Estimated LOS: Jefferson Maria MD May 13, 2017 16:02
== END 2017-05-12 03:35 | disposition left against medical advice (07) ==
LOC: NEPE 02:52 → NEPJ 03:35
DX: F32.9 Major depressive disorder, single episode, unspecified (principal); F17.200 Nicotine dependence, unspecified, uncomplicated
CPT/HCPCS: 80053; 80307; 85025; 99283

== ENCOUNTER 2017-05-12 04:26 | Emergency (ER) | payer OTHER ==
--- NOTE | 2017-05-12 04:43 | PD ---
HPI Chief Complaint: Psychiatric Symptoms Time Seen by Provider: 04:34 Travel History International Travel<30 days: No Contact w/Intl Traveler<30days: No Traveled to known affect area: No History of Present Illness HPI Patient was [place] acted and was seen in the emergency room earlier and awaiting psychiatric screening. Patient eloped. Patient was filed. Patient was brought back to ED for evaluation. Patient was [place] acted for making suicidal threats. PFSH Social History Alcohol Use: No Tobacco Use: Yes (1 PPD) Substance Use: No Allergies-Medications (Allergen,Severity, Reaction): Coded Allergies: No Known Allergies (Unverified , 05/12/17) Reported Meds & Prescriptions Reported Meds & Active Scripts Active Reported Wellbutrin SR 12 HR (Bupropion HCl) 100 Mg Tab 100 Mg PO Q12HR Review of Systems General / Constitutional: No: Fever Eyes: No: Visual changes HENT: No: Headaches Cardiovascular: No: Chest Pain or Discomfort Respiratory: No: Shortness of Breath Gastrointestinal: No: Abdominal Pain Genitourinary: No: Dysuria Musculoskeletal: No: Pain Skin: No Rash Neurologic: No: Weakness Psychiatric: No: Depression Endocrine: No: Polydipsia Hematologic/Lymphatic: No: Easy Bruising Physical Exam Narrative GENERAL: Well-nourished, well-developed patient. SKIN: Focused skin assessment warm/dry. HEAD: Normocephalic. EYES: No scleral icterus. No injection or drainage. NECK: Supple, trachea midline. No JVD or lymphadenopathy. CARDIOVASCULAR: Regular rate and rhythm without murmurs, gallops, or rubs. RESPIRATORY: Breath sounds equal bilaterally. No accessory muscle use. GASTROINTESTINAL: Abdomen soft, non-tender, nondistended. MUSCULOSKELETAL: No cyanosis, or edema. BACK: Nontender without obvious deformity. No CVA tenderness. Data Data Orders Orders Psych Screen (05/12/17 04:34) Potassium Chloride (Kcl) (05/12/17 04:45) MDM Medical Decision Making Medical Screen Exam Complete: Yes Emergency Medical Condition: Yes Differential Diagnosis Differential diagnosis: Depression, suicidal, adjustment disorder Narrative Course 32-year-old male was Patricia acted for smitten suicidal threat. Patient eloped from the ED. Patient was found. Patient was brought back for evaluation. Potassium: 3.2.. KCl 40 mEq by mouth given. Patient is medically cleared for psychiatric evaluation and disposition. Abhay Miles MD May 12, 2017 04:43
[2017-05-12] MEDS ORDERED: POTASSIUM CHLORIDE 20 MEQ CONTROLLED RELEASE TAB PO ONE (04:45)
[2017-05-12 05:09] VITALS: BP 143/79; PULSE 72; RESP 15; O2SAT 98
[2017-05-12 07:02] VITALS: BP 104/66; PULSE 94; RESP 16; O2SAT 95
[2017-05-12 14:23] VITALS: BP 118/67; PULSE 70; RESP 18
[2017-05-12 18:00] VITALS: BP 141/79; PULSE 62; RESP 17; TEMP 98.4; O2SAT 97
[2017-05-12 22:35] VITALS: BP 109/62; PULSE 54; RESP 18; O2SAT 98
[2017-05-13 02:48] VITALS: BP 122/63; PULSE 56; RESP 16; O2SAT 98
[2017-05-13 06:24] VITALS: BP 125/64; PULSE 50; RESP 18
--- NOTE | 2017-05-13 09:21 | PD ---
Physical Exam Time Seen by Provider: 09:[address] Gimenez has evaluated the patient and cleared the patient for discharge. Data Data Last Documented VS Vital Signs Date Time Temp Pulse Resp B/P (MAP) Pulse Ox O2 Delivery O2 Flow Rate FiO2 05/13/17 06:24 50 18 125/64 (84) 05/13/17 02:48 98 05/12/17 18:00 98.4 Room Air Orders Orders Psych Screen (05/12/17 04:34) Potassium Chloride (Kcl) (05/12/17 04:45) Diet Regular Basic (05/12/17 Breakfast) Diet Regular Basic (05/12/17 Lunch) Diet Regular Basic (05/12/17 Dinner) Diet Regular Basic (05/13/17 Breakfast) MDM Supervised Visit with [facility]: No Narrative Course Dr. Gimenez has evaluated the patient and cleared the patient for discharge. Patient contracts safety. Denies suicidal or homicidal ideations. Patient will be provided community resource packet to [facility] for follow-up. Has friends and family for support. Patient is medically cleared for discharge. Diagnosis Primary Impression: Adjustment disorder with depressed mood Referrals: NANDA (Out patient) [facility] Primary Care Physician Psychiatrist [facility] Patient Instructions: Depression (ED), General Instructions, Mood Disorders (ED ) Additional Instruction: Contract safety to your self and others Follow-up with psychiatry Follow-up with primary care provider Follow-up with Ken Mccormick Return to the emergency department immediately with worsening of symptoms Med/Other Pt SpecificInfo: No Change to Meds, No Meds Exist/No RX given Disposition: 01 DISCHARGE HOME Condition: Stable Berna Faria May 13, 2017 09:21
== END 2017-05-13 11:23 | disposition home or self-care (01) ==
LOC: NEPJ 04:26
DX: F32.9 Major depressive disorder, single episode, unspecified (principal); F17.200 Nicotine dependence, unspecified, uncomplicated
CPT/HCPCS: 99284